=== PATIENT | male | born 1950 | race Caucasian/White ===

== ENCOUNTER → 2016-09-22 | Outpatient (CLI) | payer MEDICARE ==
[~2016-09-22] MED LIST: BAYER ASPIRIN PO; CANA1TAB4 PO; CARI350T PO; CLOP75TA PO; CLOP75TA22 PO; COQ10 PO; DIAZ10TA PO; DILT120T3 PO; FURO-93 PO; FURO20TA3 PO; GLIM4TAB2 PO; HYDR1TAB14 PO; INSU100I13 SC; INSU100I9 SQ-INSULIN; INSU100V8 SQ; MAGNESIUM PO; METF10002 PO; OXYC-302 PO; OXYC1TAB9 PO; PANT40TA3 PO; PIOG15TA2 PO; PIOG30TA8 PO; POTA10CA PO; POTA10TA5 PO; POTASSIUM GLUCONATE PO; PRAV80TA2 PO; PREG200C PO; PREG75CA PO; ROSU20TA PO; SUPER B COMPLEX PO; TEMA30CA PO; TIZA4TAB9 PO; VALS80TA3 PO; VITAMIN D3 PO
[2016-09-22 11:17] LABS: HEMOGLOBIN 14.2 g/dL (13.7-18.0)
[2016-09-22 11:26] LABS: ASPARTATE AMINO TRANSFERASE 21 U/L (15-37); BLOOD UREA NITROGEN 37 mg/dL (7-18)
== END | disposition home or self-care (01) ==
LOC: STAR 09:50
PROVIDERS: ATTEND Neurological Surgery
DX: Z01.810 Encounter for preprocedural cardiovascular examination (principal); M47.894 Other spondylosis, thoracic region; M48.06 Spinal stenosis, lumbar region; R79.1 Abnormal coagulation profile
CPT/HCPCS: 36415; 71020; 80053; 81003; 83036; 85025; 85610; 85730; 93005

== ENCOUNTER 2016-10-06 06:01 | Inpatient (IN) | payer MEDICARE, OTHER ==
[2016-09-22 10:21] VITALS: BP 124/75
[~2016-10-06] VITALS: Ht 190.5 cm; Wt 107.1 kg
[2016-10-06] MEDS ORDERED: LACTATED RINGERS 1,000 ML IV SCH (06:36)
[2016-10-06] MEDS ORDERED: LIDOCAINE 1%, 2ML SQ PRN (07:00)
[2016-10-06] MEDS ORDERED: BUPIVACAINE/PF-EPI 0.25% 1:200K ONE ×2 (07:05→10:06)
[2016-10-06] MEDS ORDERED: KETAMINE 10 MG/ML, 20ML ONE (07:05)
[2016-10-06] MEDS ORDERED: FENTANYL PF 250 MCG/5ML ONE (07:05)
[2016-10-06] MEDS ORDERED: HYDROmorphone 1 MG/ML, 1ML ONE ×2 (07:05→12:11)
[2016-10-06] MEDS ORDERED: MIDAZOLAM 1 MG/ML, 2ML ONE (07:05)
[2016-10-06] MEDS ORDERED: BACITRACIN 50,000 UNIT ONE (07:05)
[2016-10-06] MEDS ORDERED: VANCOMYCIN 1,000 MG ONE (07:05)
[2016-10-06] MEDS ORDERED: THROMBIN 5,000 UNIT VIAL TP ONE ×2 (07:05→07:15)
[2016-10-06] MEDS ORDERED: BUPIVACAINE/PF-EPI 0.25% 1:200K INFIL ONE ×3 (07:15→08:47)
[2016-10-06] MEDS ORDERED: BACITRACIN 50,000 UNIT IRRIG ONE (07:15)
[2016-10-06] MEDS ORDERED: EPHEDRINE 50 MG/ML, 1ML ONE (07:44)
[2016-10-06] MEDS ORDERED: PROPOFOL 10 MG/ML, 50ML ONE (07:44)
[2016-10-06] MEDS ORDERED: DEXAMETHASONE 4 MG/ML, 5ML ONE (07:44)
[2016-10-06] MEDS ORDERED: PROPOFOL 10 MG/ML, 20ML ONE (07:44)
[2016-10-06] MEDS ORDERED: CEFAZOLIN 1,000 MG ONE (07:44)
[2016-10-06] MEDS ORDERED: SUCCINYLCHOLINE 20 MG/ML, 10ML ONE (07:44)
[2016-10-06] MEDS ORDERED: PHENYLEPHRINE 10 MG/ML ONE (07:44)
[2016-10-06] MEDS ORDERED: MIDAZOLAM 1 MG/ML, 2ML IV PRN (08:30)
[2016-10-06] MEDS ORDERED: ONDANSETRON 2MG/ML, 2ML IVPush PRN (08:30)
[2016-10-06] MEDS ORDERED: MEPERIDINE/PF 25MG/0.5ML IVPush PRN (08:30)
[2016-10-06] MEDS ORDERED: hydrALAzine 20 MG/ML, 1ML IV PRN (08:30)
[2016-10-06] MEDS ORDERED: LABETALOL 5MG/ML, 20ML IV PRN (08:30)
[2016-10-06] MEDS ORDERED: OXYcodone 5 MG/5 ML ORAL.SOL UDC PO PRN (08:30)
[2016-10-06] MEDS ORDERED: PROMETHAZINE 25 MG/ML, 1ML IV PRN (08:30)
[2016-10-06] MEDS ORDERED: ACETAMINOPHEN 325 MG TABLET PO PRN (08:30)
[2016-10-06] MEDS ORDERED: FENTANYL PF 100 MCG/2ML IV PRN (08:30)
[2016-10-06] MEDS ORDERED: ALBUTEROL/IPRATROPIUM 2.5MG/0.5MG, 3 ML NPPB PRN (08:30)
[2016-10-06] MEDS ORDERED: OXYC1TAB9 PO (09:34)
[2016-10-06] MEDS ORDERED: VANCOMYCIN 1,000 MG IM ONE (10:14)
[2016-10-06] MEDS ORDERED: INSULIN SINGLE DOSE, ER SQ-INSULIN ONE (13:02)
[2016-10-06] MEDS ORDERED: HYDROmorphone PCA 30 MG/30 ML ONE (13:03)
[2016-10-06] MEDS ORDERED: HYDROmorphone 2 MG/ML, 1ML ONE (13:24)
[2016-10-06] MEDS: HYDROmorphone 1 MG/ML, 1ML IV PRN ×4 (13:26→14:20)
[2016-10-06] MEDS ORDERED: HYDROmorphone PCA 30 MG/30 ML IV PRN (13:30)
[2016-10-06] MEDS ORDERED: TIZANIDINE 4MG TABLET PO SCH (14:00)
[2016-10-06 15:15] VITALS: BP 90/45
[2016-10-06] MEDS ORDERED: BISACODYL 10 MG SUPP PR PRN (16:00)
[2016-10-06] MEDS ORDERED: HYDROcodone/APAP 5/325 TABLET PO PRN (16:00)
[2016-10-06] MEDS ORDERED: TIZANIDINE 4MG TABLET PO PRN (16:00)
[2016-10-06] MEDS ORDERED: OXYcodone/APAP 5/325MG TABLET PO PRN (16:00)
[2016-10-06] MEDS ORDERED: DIPHENHYDRAMINE 25 MG CAPSULE PO PRN (16:00)
[2016-10-06] MEDS ORDERED: DIPHENHYDRAMINE 50 MG/ML, 1ML IVPush PRN (16:00)
[2016-10-06] MEDS ORDERED: MAGNESIUM HYDROXIDE 8%, 30ML UDC PO PRN (16:00)
[2016-10-06] MEDS: CEFAZOLIN PMX 1GM/50ML 50 ML IVPB SCH (16:32)
[2016-10-06] MEDS: NS + 20MEQ KCL 1,000 ML IV SCH (16:32)
[2016-10-06] MEDS: INSULIN REGULAR 100 UNITS/ML, 3ML VIAL SQ-INSULIN SCH ×2 (18:23→21:32)
[2016-10-06] MEDS: PREGABALIN 200 MG CAPSULE PO SCH ×2 (18:24→21:34)
[2016-10-06] MEDS: INVOKAMET HOMEMEDPO SCH (18:57)
[2016-10-06 19:38] VITALS: BP 109/61
[2016-10-06] MEDS: ATORVASTATIN 20 MG TABLET PO SCH (21:32)
[2016-10-06] MEDS: TIZANIDINE 4MG TABLET PO PRN (21:32)
[2016-10-06] MEDS: DILTIAZEM 120 MG CAP.ER.12H PO SCH (21:32)
[2016-10-06] MEDS: INSULIN DETEMIR 100 UNITS/ML, PEN SQ-INSULIN SCH (21:50)
[2016-10-07] MEDS: CEFAZOLIN PMX 1GM/50ML 50 ML IVPB SCH (00:02)
[2016-10-07 00:44] VITALS: BP 96/56
[2016-10-07 03:08] VITALS: BP 91/57
[2016-10-07] MEDS: NS + 20MEQ KCL 1,000 ML IV SCH ×2 (05:32→19:59)
[2016-10-07 06:05] LABS: HEMOGLOBIN 10.1 g/dL (13.7-18.0)
[2016-10-07 06:48] LABS: BLOOD UREA NITROGEN 49 mg/dL (7-18)
[2016-10-07] MEDS: INVOKAMET HOMEMEDPO SCH ×2 (08:00→17:00)
[2016-10-07] MEDS: INSULIN REGULAR 100 UNITS/ML, 3ML VIAL SQ-INSULIN SCH ×4 (08:05→21:23)
[2016-10-07 08:19] VITALS: BP 113/64
[2016-10-07] MEDS: PREGABALIN 200 MG CAPSULE PO SCH ×3 (08:23→21:23)
[2016-10-07] MEDS: POTASSIUM CHLORIDE 10 MEQ TABLET.ER PO SCH (08:23)
[2016-10-07] MEDS: SENNA/DOCUSATE TABLET PO SCH (08:23)
[2016-10-07] MEDS: OXYcodone/APAP 10/325MG TABLET PO SCH ×5 (08:30→21:23)
[2016-10-07] MEDS: PIOGLITAZONE 15 MG TABLET PO SCH (08:34)
[2016-10-07] MEDS: DILTIAZEM 120 MG CAP.ER.12H PO SCH ×2 (09:00→21:00)
[2016-10-07] MEDS ORDERED: LEVOFLOXACIN 500 MG TABLET PO SCH (09:00)
[2016-10-07] MEDS: VALSARTAN 80 MG TABLET PO SCH (09:00)
[2016-10-07] MEDS: FUROSEMIDE 20 MG TABLET PO SCH (10:08)
[2016-10-07 16:12] VITALS: BP 103/61
[2016-10-07 20:07] VITALS: BP 90/51
[2016-10-07] MEDS: INSULIN DETEMIR 100 UNITS/ML, PEN SQ-INSULIN SCH (21:22)
[2016-10-07] MEDS: ATORVASTATIN 20 MG TABLET PO SCH (21:23)
[2016-10-08] MEDS: OXYcodone/APAP 10/325MG TABLET PO SCH ×7 (01:03→21:05)
[2016-10-08 02:14] VITALS: BP 97/55
[2016-10-08 05:32] LABS: HEMOGLOBIN 9.4 g/dL (13.7-18.0)
[2016-10-08 05:45] LABS: BLOOD UREA NITROGEN 44 mg/dL (7-18)
[2016-10-08] MEDS: INSULIN REGULAR 100 UNITS/ML, 3ML VIAL SQ-INSULIN SCH ×4 (07:00→21:00)
[2016-10-08] MEDS: INVOKAMET HOMEMEDPO SCH ×2 (08:00→16:37)
[2016-10-08] MEDS: SENNA/DOCUSATE TABLET PO SCH (08:59)
[2016-10-08] MEDS: PREGABALIN 200 MG CAPSULE PO SCH ×3 (08:59→21:04)
[2016-10-08] MEDS: POTASSIUM CHLORIDE 10 MEQ TABLET.ER PO SCH (08:59)
[2016-10-08] MEDS: LEVOFLOXACIN 750 MG TABLET PO SCH (09:00)
[2016-10-08] MEDS: PIOGLITAZONE 15 MG TABLET PO SCH (09:00)
[2016-10-08 09:15] VITALS: BP 108/61
[2016-10-08 10:21] VITALS: BP 113/66
[2016-10-08] MEDS: DILTIAZEM 120 MG CAP.ER.12H PO SCH ×2 (10:24→21:00)
[2016-10-08] MEDS: FUROSEMIDE 20 MG TABLET PO SCH (10:25)
[2016-10-08] MEDS: VALSARTAN 80 MG TABLET PO SCH (10:25)
[2016-10-08] MEDS: TIZANIDINE 4MG TABLET PO PRN (12:37)
[2016-10-08 15:40] VITALS: BP 100/59
[2016-10-08 20:43] VITALS: BP 96/55
[2016-10-08] MEDS: ATORVASTATIN 20 MG TABLET PO SCH (21:04)
[2016-10-08] MEDS: INSULIN DETEMIR 100 UNITS/ML, PEN SQ-INSULIN SCH (21:05)
[2016-10-09 02:30] VITALS: BP 95/60
[2016-10-09] MEDS: OXYcodone/APAP 10/325MG TABLET PO SCH ×6 (03:08→23:12)
[2016-10-09 07:49] VITALS: BP 100/57
[2016-10-09] MEDS: INVOKAMET HOMEMEDPO SCH ×3 (08:00→17:00)
[2016-10-09] MEDS: PREGABALIN 200 MG CAPSULE PO SCH ×3 (08:06→20:33)
[2016-10-09] MEDS: POTASSIUM CHLORIDE 10 MEQ TABLET.ER PO SCH (08:07)
[2016-10-09] MEDS: LEVOFLOXACIN 750 MG TABLET PO SCH (08:07)
[2016-10-09] MEDS: SENNA/DOCUSATE TABLET PO SCH (08:08)
[2016-10-09] MEDS: PIOGLITAZONE 15 MG TABLET PO SCH (08:08)
[2016-10-09] MEDS: DILTIAZEM 120 MG CAP.ER.12H PO SCH (08:08)
[2016-10-09] MEDS: VALSARTAN 80 MG TABLET PO SCH (08:08)
[2016-10-09] MEDS: INSULIN REGULAR 100 UNITS/ML, 3ML VIAL SQ-INSULIN SCH ×4 (08:09→20:34)
[2016-10-09] MEDS ORDERED: CYCL-259 PO (08:38)
[2016-10-09] MEDS ORDERED: LEVO750T26 PO (08:38)
[2016-10-09] MEDS ORDERED: OXYC1TAB9 PO (08:38)
[2016-10-09 10:31] VITALS: BP 106/67
[2016-10-09] MEDS: ONDANSETRON 2MG/ML, 2ML IV PRN (10:32)
[2016-10-09 11:31] LABS: IS PT STATUS REG ER OR PRE ER? NO
[2016-10-09] MEDS ORDERED: FUROSEMIDE 40 MG TABLET PO SCH (11:47)
[2016-10-09 14:45] VITALS: BP 120/74
[2016-10-09 15:43] LABS: HEMOGLOBIN 11.4 g/dL (13.7-18.0)
[2016-10-09 18:40] LABS: IS PT STATUS REG ER OR PRE ER? NO
[2016-10-09 18:41] VITALS: BP_SYST 106; BP_SYST 122; BP_SYST 87; BP_DIAS 46; BP_DIAS 64; BP_DIAS 70
[2016-10-09] MEDS ORDERED: SODIUM CHLORIDE 0.9% 300 ML IV SCH ×2 (19:00)
[2016-10-09] MEDS ORDERED: SODIUM CHLORIDE 0.9%, 500ML IVBOLUS ONE (19:00)
[2016-10-09 20:00] VITALS: BP 100/63
[2016-10-09] MEDS: ATORVASTATIN 20 MG TABLET PO SCH (20:33)
[2016-10-09] MEDS: INSULIN DETEMIR 100 UNITS/ML, PEN SQ-INSULIN SCH (20:34)
[2016-10-09 23:56] LABS: IS PT STATUS REG ER OR PRE ER? NO
[2016-10-10 02:00] VITALS: BP 103/60
[2016-10-10] MEDS: OXYcodone/APAP 10/325MG TABLET PO SCH ×6 (03:00→19:54)
[2016-10-10 06:00] LABS: IS PT STATUS REG ER OR PRE ER? NO
[2016-10-10] MEDS: INSULIN REGULAR 100 UNITS/ML, 3ML VIAL SQ-INSULIN SCH ×4 (07:00→20:54)
[2016-10-10 07:36] VITALS: BP 125/66
[2016-10-10] MEDS ORDERED: FUROSEMIDE 20 MG TABLET PO SCH (09:00)
[2016-10-10] MEDS: INVOKAMET HOMEMEDPO SCH ×2 (09:13→17:00)
[2016-10-10] MEDS: POTASSIUM CHLORIDE 10 MEQ TABLET.ER PO SCH (09:14)
[2016-10-10] MEDS: PIOGLITAZONE 15 MG TABLET PO SCH (09:14)
[2016-10-10] MEDS: SENNA/DOCUSATE TABLET PO SCH (09:15)
[2016-10-10] MEDS: PREGABALIN 200 MG CAPSULE PO SCH ×3 (09:15→20:54)
[2016-10-10] MEDS: LEVOFLOXACIN 750 MG TABLET PO SCH (09:15)
[2016-10-10 11:51] VITALS: BP_SYST 106; BP_SYST 84; BP_SYST 91; BP_DIAS 58; BP_DIAS 67
[2016-10-10 13:56] VITALS: BP 119/77
[2016-10-10] MEDS ORDERED: SODIUM CHLORIDE 0.9%, 250ML IVBOLUS ONE (15:00)
[2016-10-10] MEDS: ONDANSETRON 2MG/ML, 2ML IV PRN (15:26)
[2016-10-10] MEDS ORDERED: HEPARIN 25,000 UNITS/500ML PMX 500 ML IV PRN ×3 (17:00)
[2016-10-10] MEDS ORDERED: HEPARIN 5,000 UNITS/ML, 1ML IV PRN ×2 (17:00→17:47)
[2016-10-10] MEDS ORDERED: OMNIPAQUE 350 MG/ML, 100ML BOTTLE ONE (17:55)
[2016-10-10] MEDS ORDERED: FUROSEMIDE 40 MG/4 ML IV PRN (18:00)
[2016-10-10] MEDS ORDERED: SODIUM CHLORIDE 0.9% 1,000 ML IV SCH (18:00)
[2016-10-10 19:43] VITALS: BP 100/60
[2016-10-10] MEDS: ATORVASTATIN 20 MG TABLET PO SCH (20:53)
[2016-10-10] MEDS: INSULIN DETEMIR 100 UNITS/ML, PEN SQ-INSULIN SCH (20:55)
[2016-10-11] MEDS: OXYcodone/APAP 10/325MG TABLET PO SCH ×4 (00:02→12:07)
[2016-10-11 02:00] VITALS: BP_SYST 112; BP_SYST 93; BP_SYST 95; BP_DIAS 58; BP_DIAS 61; BP_DIAS 65
[2016-10-11] MEDS: INSULIN REGULAR 100 UNITS/ML, 3ML VIAL SQ-INSULIN SCH ×2 (07:00→11:00)
[2016-10-11 07:24] VITALS: BP 103/65
[2016-10-11 07:26] VITALS: BP 97/63
[2016-10-11 07:32] VITALS: BP 106/70
[2016-10-11] MEDS: INVOKAMET HOMEMEDPO SCH (08:00)
[2016-10-11] MEDS: PIOGLITAZONE 15 MG TABLET PO SCH (09:00)
[2016-10-11 09:02] LABS: BLOOD UREA NITROGEN 39 mg/dL (7-18)
[2016-10-11] MEDS: POTASSIUM CHLORIDE 10 MEQ TABLET.ER PO SCH (09:34)
[2016-10-11] MEDS: PREGABALIN 200 MG CAPSULE PO SCH (09:34)
[2016-10-11] MEDS: SENNA/DOCUSATE TABLET PO SCH (09:35)
[2016-10-11] MEDS: LEVOFLOXACIN 750 MG TABLET PO SCH (09:35)
== END 2016-10-11 12:16 | disposition home or self-care (01) | DRG 460 ==
LOC: ORIP 06:01 → 4NOR 15:22 → 5SO 10-09 15:01
PROVIDERS: ADMIT Neurological Surgery; ATTEND Neurological Surgery
PROC: 0SG30AJ Fusion of Lumbosacral Joint with Interbody Fusion Device, Posterior Approach, Anterior Column, Open Approach (ICD-10-PCS; 2016-10-06)
PROC: 0SG30K1 Fusion of Lumbosacral Joint with Nonautologous Tissue Substitute, Posterior Approach, Posterior Column, Open Approach (ICD-10-PCS; 2016-10-06)
PROC: 0SG00K1 Fusion of Lumbar Vertebral Joint with Nonautologous Tissue Substitute, Posterior Approach, Posterior Column, Open Approach (ICD-10-PCS; 2016-10-06)
PROC: 5A09457 Assistance with Respiratory Ventilation, 24-96 Consecutive Hours, Continuous Positive Airway Pressure (ICD-10-PCS; 2016-10-06)
PROC: 0SG00AJ Fusion of Lumbar Vertebral Joint with Interbody Fusion Device, Posterior Approach, Anterior Column, Open Approach (ICD-10-PCS; principal; 2016-10-06 07:30)
DX: M48.06 Spinal stenosis, lumbar region (principal); I13.0 Hypertensive heart and chronic kidney disease with heart failure and stage 1 through stage 4 chronic kidney disease, or unspecified chronic kidney disease; I50.42 Chronic combined systolic (congestive) and diastolic (congestive) heart failure; M51.37 Other intervertebral disc degeneration, lumbosacral region; M43.10 Spondylolisthesis, site unspecified; M40.209 Unspecified kyphosis, site unspecified; M54.5 Low back pain; I25.10 Atherosclerotic heart disease of native coronary artery without angina pectoris; N18.3 Chronic kidney disease, stage 3 (moderate); E11.22 Type 2 diabetes mellitus with diabetic chronic kidney disease; E78.5 Hyperlipidemia, unspecified; I95.1 Orthostatic hypotension; I25.5 Ischemic cardiomyopathy; K21.9 Gastro-esophageal reflux disease without esophagitis; Z95.5 Presence of coronary angioplasty implant and graft; I25.2 Old myocardial infarction; Z82.49 Family history of ischemic heart disease and other diseases of the circulatory system
CPT/HCPCS: 36415; 71020; 71275; 72100; 78582; 80048; 82962; 83036; 83880; 84484; 85025; 85379; 85610; 85730; 87040; 93005; 93306; 95938; 95941; C1713; C1776; J0690; J1100; J1170; J1815; J2250; J2405; J2704; J3010; J3370; J3480; J3490; Q9967; A9540; A9558; C1762; C9898; J0330; J2370; J7030; J7040; J7050; J7120

== ENCOUNTER → 2017-03-10 | Outpatient (CLI) | payer MEDICARE ==
[~2017-03-10] MED LIST changes: -CLOP75TA22 PO; +CLOP75TA52 PO; +CYCL-259 PO; +LEVO750T26 PO; +PIOG30TA23 PO; -PIOG30TA8 PO
== END | disposition home or self-care (01) ==
LOC: RAD 09:24
PROVIDERS: ATTEND Registered Nurse Registered Nurse First Assistant
DX: S32.009A Unspecified fracture of unspecified lumbar vertebra, initial encounter for closed fracture (principal)

== ENCOUNTER 2017-03-16 08:41 | Day surgery (SDC) | payer MEDICARE, OTHER ==
[~2017-03-16] VITALS: Ht 190.5 cm; Wt 106.8 kg
[2017-03-16 09:28] VITALS: BP 122/73
[2017-03-16] MEDS ORDERED: SODIUM CHLORIDE 0.9% 1,000 ML IV SCH (09:32)
[2017-03-16] MEDS ORDERED: LIDOCAINE 2%, 20ML ONE (09:32)
[2017-03-16] MEDS ORDERED: FENTANYL PF 100 MCG/2ML ONE (10:30)
[2017-03-16] MEDS ORDERED: FLUMAZENIL 0.1 MG/1 ML, 5ML ONE (10:30)
[2017-03-16] MEDS ORDERED: MIDAZOLAM 1 MG/ML, 5ML ONE (10:30)
[2017-03-16] MEDS ORDERED: NALOXONE 1 MG/ML, 2ML ONE (10:30)
[2017-03-16] MEDS ORDERED: DIPHENHYDRAMINE 50 MG/ML, 1ML ONE (10:45)
[2017-03-16] MEDS ORDERED: MEPERIDINE/PF 50 MG/ML ONE (10:46)
[2017-03-16] MEDS ORDERED: LIDOCAINE 1%, 20ML ONE (11:01)
[2017-03-16] MEDS ORDERED: HYDROcodone/APAP 10/325 MG TABLET ONE (13:58)
[2017-03-16] MEDS ORDERED: HYDROcodone/APAP 10/325 MG TABLET PO PRN (14:00)
== END 2017-03-16 15:25 ==
LOC: OUT 08:41
PROVIDERS: ATTEND Registered Nurse Registered Nurse First Assistant
DX: M84.48XK Pathological fracture, other site, subsequent encounter for fracture with nonunion (principal); I10 Essential (primary) hypertension; E11.9 Type 2 diabetes mellitus without complications; I25.2 Old myocardial infarction; Z98.890 Other specified postprocedural states; Z79.82 Long term (current) use of aspirin
CPT/HCPCS: 0200T; 22511; 99156; 99157; J1200; J2175; J2250; J3010; J3490; J7030; J2310

== ENCOUNTER → 2017-05-31 | Outpatient (CLI) | payer MEDICARE, OTHER | END | disposition home or self-care (01) | LOC: CFH 15:23 | PROVIDERS: ATTEND Otolaryngology | DX: E04.2 Nontoxic multinodular goiter (principal) | CPT/HCPCS: 76536 ==

== ENCOUNTER → 2017-07-01 | Outpatient (CLI) | payer MEDICARE, OTHER ==
[~2017-07-01] MED LIST changes: +ASPI325T17 PO; +CARV3.1212 PO; +DILT120C11 PO; +DILT120C80 PO; +FERR324T8 PO; +FURO40TA6 PO; +GABA-826 PO; +INSU100I13 SQ; +METH750T2 PO; +PIOG15TA22 PO; +POLY17PO5 PO; +POTA20TA6 PO; +VALS40TA9 PO
== END | disposition home or self-care (01) ==
LOC: RAD 09:41
PROVIDERS: ATTEND Nurse Practitioner Family
DX: I27.20 Pulmonary hypertension, unspecified (principal); R06.02 Shortness of breath; R07.89 Other chest pain
CPT/HCPCS: 71010; 78582; A9540; A9558

== ENCOUNTER 2017-07-23 06:48 | Day surgery (SDC) | payer MEDICARE, OTHER ==
[2017-07-21 15:32] VITALS: BP 117/75
[2017-07-21 15:39] LABS: INTERNATIONAL NORMALIZED RATIO 1.09 (0.93-1.1); PROTHROMBIN TIME 11.3 Seconds (9.6-11.5)
[2017-07-21 15:42] LABS: ALBUMIN 3.9 g/dL (3.4-5.0); ANION GAP 9 mmol/L (5-15); CALCIUM 9.3 mg/dL (8.5-10.1); CHLORIDE 107 mmol/L (98-107)
[2017-07-21 15:45] LABS: ALANINE AMINOTRANSFERASE 36 U/L (12-78); ALKALINE PHOSPHATASE 174 U/L (45-117); BILIRUBIN,TOTAL 0.9 mg/dL (0.2-1.0); CREATININE 2.04 mg/dL (0.7-1.3); TOTAL PROTEIN 8.2 g/dL (6.4-8.2)
[2017-07-21 15:53] LABS: HEMOGRAM NOTE RECHECKED; MEAN CORPUSCULAR HEMOGLOBIN 25.8 pg (27.5-34.5); MEAN CORPUSCULAR HGB CONC 32.1 g/dL (33.2-36.2); MEAN CORPUSCULAR VOLUME 80.3 fL (81-97); MEAN PLATELET VOLUME 9.8 fL (7.4-10.4); PLATELET COUNT 175 x10^3/uL (130-400); RED BLOOD COUNT 5.22 x10^6/uL (4.38-5.82); RED CELL DISTRIBUTION WIDTH 28.2 % (9.4-14.8)
[2017-07-21 16:13] LABS: MD YES
[2017-07-21 16:16] LABS: BAND#(MANUAL) 0.09 x10^3/uL; BANDS%(MANUAL) 2 % (0-7); BASOS#(MANUAL) 0.18 x10^3/uL (0-0.1); BASOS% (MANUAL) 4 % (0-1); EOS#(MANUAL) 0.37 x10^3/uL (0.0-0.4); EOS% (MANUAL) 8 % (1-7); LYMPH#(MANUAL) 1.43 x10^3/uL (1-3.4); LYMPHS% (MANUAL) 31 % (22-44); MONOS#(MANUAL) 0.83 x10^3/uL (0.3-2.7); MONOS% (MANUAL) 18 % (2-9); REACTIVE LYMPHS # (MANUAL) 0.05 x10^3/uL (0-0); REACTIVE LYMPHS % (MANUAL) 1 % (0-0); SEG#(MANUAL) 1.66 x10^3/uL (1.8-6.8); SEGS% (MANUAL) 36 % (42-75)
[2017-07-21 16:18] LABS: ANISOCYTOSIS 2+; MICROCYTOSIS 1+
[2017-07-21 16:19] LABS: <PLATELET ESTIMATE> ADEQUATE; HYPOCHROMIA 1+; OVALOCYTES 1+; POLYCHROMASIA 1+; SCHISTOCYTES 1+
[2017-07-21 16:20] LABS: LARGE PLATELETS 1+
[~2017-07-23] VITALS: Ht 190.5 cm; Wt 104.5 kg
[~2017-07-23 06:48] MED LIST changes: +CARV3.122 PO; +FERR325T16 PO; +POLY17PO3 PO; +POTA20TA89 PO; +VALS40TA2 PO
[2017-07-23] MEDS ORDERED: SODIUM BICARB 8.4%,50ML SYR. 150 MEQ in DEXTROSE 5% 1,000 ML IV SCH (07:20)
[2017-07-23] MEDS ORDERED: SODIUM CHLORIDE 0.9% 1,000 ML IV SCH (10:36)
== END 2017-07-23 16:42 | disposition home or self-care (01) ==
LOC: CACL 06:48
PROVIDERS: ATTEND Internal Medicine Cardiovascular Disease
DX: I25.110 Atherosclerotic heart disease of native coronary artery with unstable angina pectoris (principal); I13.0 Hypertensive heart and chronic kidney disease with heart failure and stage 1 through stage 4 chronic kidney disease, or unspecified chronic kidney disease; E11.22 Type 2 diabetes mellitus with diabetic chronic kidney disease; N18.3 Chronic kidney disease, stage 3 (moderate); I50.41 Acute combined systolic (congestive) and diastolic (congestive) heart failure; E78.4 Other hyperlipidemia; Z98.890 Other specified postprocedural states; Z79.82 Long term (current) use of aspirin; Z79.899 Other long term (current) drug therapy; Z79.4 Long term (current) use of insulin; Z87.11 Personal history of peptic ulcer disease; E11.39 Type 2 diabetes mellitus with other diabetic ophthalmic complication; H40.9 Unspecified glaucoma; E11.40 Type 2 diabetes mellitus with diabetic neuropathy, unspecified; E11.65 Type 2 diabetes mellitus with hyperglycemia; E04.1 Nontoxic single thyroid nodule; Z98.61 Coronary angioplasty status; Z88.5 Allergy status to narcotic agent
CPT/HCPCS: 36415; 71046; 80053; 82962; 85025; 85610; 85730; 93005; 93458; 99156; 99157; C1725; C1769; C1874; C1887; C1894; C9600; J0583; J1644; J2250; J3010; J3490; J7070; Q9967

== ENCOUNTER 2017-12-17 11:27 | Emergency (ER) | payer MEDICARE, OTHER ==
[~2017-12-17] VITALS: Ht 190.5 cm; Wt 102.8 kg
[~2017-12-17 11:27] MED LIST changes: +ISOS30TA8 PO; -PIOG15TA2 PO; +PIOG15TA3 PO
[2017-12-17 11:29] VITALS: BP 114/64
== END 2017-12-17 12:47 | disposition left against medical advice (07) ==
LOC: ED 12:41
DX: S80.11XA Contusion of right lower leg, initial encounter (principal); I11.0 Hypertensive heart disease with heart failure; I50.9 Heart failure, unspecified; E11.9 Type 2 diabetes mellitus without complications; I25.10 Atherosclerotic heart disease of native coronary artery without angina pectoris; X58.XXXA Exposure to other specified factors, initial encounter; Y93.89 Activity, other specified; Y92.89 Other specified places as the place of occurrence of the external cause; Y99.8 Other external cause status
CPT/HCPCS: 99281

== ENCOUNTER 2017-12-27 12:16 | Inpatient (IN) | payer MEDICARE, OTHER ==
[~2017-12-27] VITALS: Ht 190.5 cm; Wt 91.8 kg
[~2017-12-27 12:16] MED LIST changes: +OXYC-432 PO; -OXYC1TAB9 PO; -PIOG15TA3 PO; +PIOG15TA66 PO
[2017-12-27 12:50] LABS: BASOPHILS # (AUTO) 0.01 x10^3/uL (0-0.1); BASOPHILS % (AUTO) 0 % (0-1); EOSINOPHILS # (AUTO) 0.18 x10^3/uL (0-0.4); EOSINOPHILS % (AUTO) 3 % (1-7); LYMPHOCYTES # (AUTO) 0.67 x10^3/uL (1-3.4); LYMPHOCYTES % (AUTO) 11 % (22-44); MD NO; MEAN CORPUSCULAR HEMOGLOBIN 29.7 pg (27.5-34.5); MEAN CORPUSCULAR HGB CONC 32.9 g/dL (33.2-36.2); MEAN CORPUSCULAR VOLUME 90.2 fL (81-97); MEAN PLATELET VOLUME 10.1 fL (7.4-10.4); MONOCYTES # (AUTO) 0.89 x10^3/uL (0.2-0.8); MONOCYTES % (AUTO) 15 % (2-9); NEUTROPHILS # (AUTO) 4.31 x10^3/uL (1.8-6.8); NEUTROPHILS % (AUTO) 71 % (42-75); PLATELET COUNT 140 x10^3/uL (130-400); RED BLOOD COUNT 4.34 x10^6/uL (4.38-5.82); RED CELL DISTRIBUTION WIDTH 17.2 % (9.4-14.8)
[2017-12-27 13:02] LABS: ALANINE AMINOTRANSFERASE 46 U/L (12-78); ALBUMIN 3.2 g/dL (3.4-5.0); ANION GAP 9 mmol/L (5-15); CALCIUM 8.7 mg/dL (8.5-10.1); CHLORIDE 114 mmol/L (98-107); CREATININE 1.89 mg/dL (0.7-1.3)
[2017-12-27 13:06] LABS: ALKALINE PHOSPHATASE 284 U/L (45-117); BILIRUBIN,TOTAL 1.8 mg/dL (0.2-1.0); TOTAL PROTEIN 7.2 g/dL (6.4-8.2); TROPONIN I 0.043 ng/mL (0.000-0.045)
[2017-12-27] MEDS ORDERED: SERT50TA5 PO (13:32)
[2017-12-27] MEDS ORDERED: FUROSEMIDE 40 MG/4 ML ONE (13:50)
[2017-12-27] MEDS ORDERED: SODIUM CHLORIDE FLUSH 10ML SYR IVF ONE (14:00)
[2017-12-27] MEDS ORDERED: FUROSEMIDE 40 MG/4 ML IV ONE (14:00)
[2017-12-27] MEDS ORDERED: HYDR-3307 PO (14:09)
[2017-12-27] MEDS ORDERED: INSU100I32 SQ-INSULIN (14:10)
[2017-12-27] MEDS ORDERED: INSU100C SQ-INSULIN (14:11)
[2017-12-27] MEDS ORDERED: ACETAMINOPHEN 325 MG TABLET PO PRN (14:30)
[2017-12-27] MEDS ORDERED: hydrALAzine 20 MG/ML, 1ML IVPush PRN (14:30)
[2017-12-27] MEDS ORDERED: DOCUSATE 100 MG CAPSULE PO PRN (14:30)
[2017-12-27] MEDS ORDERED: POLYETHYLENE GLYCOL 17 GM PACKET PO PRN (14:30)
[2017-12-27] MEDS ORDERED: ONDANSETRON 2MG/ML, 2ML IVPush PRN (14:30)
[2017-12-27] MEDS ORDERED: BISACODYL 10 MG SUPP PR PRN (14:30)
[2017-12-27 14:50] VITALS: BP 119/74
[2017-12-27] MEDS: HEPARIN 5,000 UNITS/ML, 1ML SQ SCH ×2 (15:32→22:34)
[2017-12-27] MEDS: GABAPENTIN 100 MG CAPSULE PO SCH ×2 (15:32→21:52)
[2017-12-27] MEDS: PREGABALIN 200 MG CAPSULE PO SCH ×2 (15:33→21:52)
[2017-12-27] MEDS: HYDROcodone/APAP 10/325 MG TABLET PO PRN (16:16)
[2017-12-27] MEDS: INSULIN LISPRO 100 UNITS/ML, PEN SQ-INSULIN SCH ×2 (16:21→21:00)
[2017-12-27 18:13] LABS: TROPONIN I 0.038 ng/mL (0.000-0.045)
[2017-12-27 19:12] VITALS: BP 119/85
[2017-12-27] MEDS ORDERED: INSULIN DEGLUDEC 48 UNIT SQ-INSULIN SCH (21:00)
[2017-12-27] MEDS ORDERED: ISOSORBIDE MONONITRATE ER 30 MG TABLET PO SCH (21:00)
[2017-12-27] MEDS ORDERED: CARVEDILOL 3.125 MG TABLET PO SCH (21:00)
[2017-12-27] MEDS: SODIUM CHLORIDE FLUSH 10ML SYR IVF SCH (21:46)
[2017-12-27] MEDS: CARVEDILOL 3.125 MG TABLET PO SCH (21:48)
[2017-12-27] MEDS: TEMAZEPAM 30 MG CAPSULE PO SCH (21:50)
[2017-12-27] MEDS: METHOCARBAMOL 750 MG TABLET PO SCH (21:50)
[2017-12-27] MEDS: SERTRALINE 50MG TABLET PO SCH (21:52)
[2017-12-28] VITALS (7 sets, daily range): BP systolic 95–146; BP diastolic 62–89
[2017-12-28 01:21] LABS: TROPONIN I 0.042 ng/mL (0.000-0.045)
[2017-12-28] MEDS: HYDROcodone/APAP 10/325 MG TABLET PO PRN ×4 (01:21→23:29)
[2017-12-28 05:19] LABS: BASOPHILS # (AUTO) 0.05 x10^3/uL (0-0.1); BASOPHILS % (AUTO) 1 % (0-1); EOSINOPHILS # (AUTO) 0.25 x10^3/uL (0-0.4); EOSINOPHILS % (AUTO) 4 % (1-7); LYMPHOCYTES # (AUTO) 0.79 x10^3/uL (1-3.4); LYMPHOCYTES % (AUTO) 13 % (22-44); MD NO; MEAN CORPUSCULAR HEMOGLOBIN 29.2 pg (27.5-34.5); MEAN CORPUSCULAR HGB CONC 32.6 g/dL (33.2-36.2); MEAN CORPUSCULAR VOLUME 89.8 fL (81-97); MEAN PLATELET VOLUME 9.9 fL (7.4-10.4); MONOCYTES # (AUTO) 0.76 x10^3/uL (0.2-0.8); MONOCYTES % (AUTO) 12 % (2-9); NEUTROPHILS # (AUTO) 4.39 x10^3/uL (1.8-6.8); NEUTROPHILS % (AUTO) 70 % (42-75); PLATELET COUNT 131 x10^3/uL (130-400); RED BLOOD COUNT 4.21 x10^6/uL (4.38-5.82); RED CELL DISTRIBUTION WIDTH 16.8 % (9.4-14.8)
[2017-12-28 05:33] LABS: CHLORIDE 111 mmol/L (98-107)
[2017-12-28 05:49] LABS: ALANINE AMINOTRANSFERASE 41 U/L (12-78); ALBUMIN 3.1 g/dL (3.4-5.0); ALKALINE PHOSPHATASE 266 U/L (45-117); ANION GAP 8 mmol/L (5-15); BILIRUBIN,TOTAL 2.3 mg/dL (0.2-1.0); CALCIUM 8.5 mg/dL (8.5-10.1); CREATININE 1.64 mg/dL (0.7-1.3); TOTAL PROTEIN 6.8 g/dL (6.4-8.2)
[2017-12-28] MEDS: HEPARIN 5,000 UNITS/ML, 1ML SQ SCH ×3 (06:02→23:28)
[2017-12-28] MEDS: POLYETHYLENE GLYCOL 17 GM PACKET PO PRN (06:02)
[2017-12-28] MEDS: INSULIN LISPRO 100 UNITS/ML, PEN SQ-INSULIN SCH ×4 (08:21→21:00)
[2017-12-28] MEDS ORDERED: DILTIAZEM 120 MG CAP.ER.24H PO SCH (09:00)
[2017-12-28] MEDS ORDERED: INSULIN DEGLUDEC 48 UNIT SQ-INSULIN SCH (09:00)
[2017-12-28] MEDS: CLOPIDOGREL 75 MG TABLET PO SCH (09:31)
[2017-12-28] MEDS: VALSARTAN 80 MG TABLET PO SCH (09:32)
[2017-12-28] MEDS: ASPIRIN 325 MG TABLET PO SCH (09:32)
[2017-12-28] MEDS: GABAPENTIN 100 MG CAPSULE PO SCH ×3 (09:32→21:08)
[2017-12-28] MEDS: PREGABALIN 200 MG CAPSULE PO SCH ×3 (09:32→21:09)
[2017-12-28] MEDS: DILTIAZEM 120 MG CAP.ER.24H PO SCH (09:32)
[2017-12-28] MEDS: ISOSORBIDE MONONITRATE ER 30 MG TABLET PO SCH (09:33)
[2017-12-28] MEDS: FUROSEMIDE 40 MG/4 ML IV SCH (09:33)
[2017-12-28] MEDS: SODIUM CHLORIDE FLUSH 10ML SYR IVF SCH ×2 (09:33→21:03)
[2017-12-28] MEDS: CARVEDILOL 3.125 MG TABLET PO SCH ×2 (09:33→21:05)
[2017-12-28] MEDS: INSULIN DEGLUDEC 48 UNIT HOMEINJ SCH (21:00)
[2017-12-28] MEDS: METHOCARBAMOL 750 MG TABLET PO SCH (21:08)
[2017-12-28] MEDS: TEMAZEPAM 30 MG CAPSULE PO SCH (21:08)
[2017-12-28] MEDS: SERTRALINE 50MG TABLET PO SCH (21:09)
[2017-12-29 01:19] VITALS: BP 119/74
[2017-12-29 04:49] LABS: CHLORIDE 108 mmol/L (98-107)
[2017-12-29 05:00] LABS: ALANINE AMINOTRANSFERASE 38 U/L (12-78); ALBUMIN 3.2 g/dL (3.4-5.0); ALKALINE PHOSPHATASE 271 U/L (45-117); ANION GAP 7 mmol/L (5-15); BILIRUBIN,TOTAL 1.9 mg/dL (0.2-1.0); CALCIUM 8.7 mg/dL (8.5-10.1); CREATININE 1.55 mg/dL (0.7-1.3)
[2017-12-29] MEDS: POLYETHYLENE GLYCOL 17 GM PACKET PO PRN (05:49)
[2017-12-29 06:40] VITALS: BP 109/70
[2017-12-29] MEDS: CLOPIDOGREL 75 MG TABLET PO SCH (08:02)
[2017-12-29] MEDS: ISOSORBIDE MONONITRATE ER 30 MG TABLET PO SCH (08:02)
[2017-12-29] MEDS: CARVEDILOL 3.125 MG TABLET PO SCH ×2 (08:02→20:41)
[2017-12-29] MEDS: PREGABALIN 200 MG CAPSULE PO SCH ×3 (08:02→20:36)
[2017-12-29] MEDS: GABAPENTIN 100 MG CAPSULE PO SCH ×3 (08:02→20:36)
[2017-12-29] MEDS: ASPIRIN 325 MG TABLET PO SCH (08:03)
[2017-12-29] MEDS: DILTIAZEM 120 MG CAP.ER.24H PO SCH (08:03)
[2017-12-29] MEDS: VALSARTAN 80 MG TABLET PO SCH (08:07)
[2017-12-29] MEDS: FUROSEMIDE 40 MG/4 ML IV SCH (08:08)
[2017-12-29] MEDS: HEPARIN 5,000 UNITS/ML, 1ML SQ SCH ×3 (08:08→23:16)
[2017-12-29] MEDS: INSULIN LISPRO 100 UNITS/ML, PEN SQ-INSULIN SCH ×4 (08:10→20:42)
[2017-12-29] MEDS: SODIUM CHLORIDE FLUSH 10ML SYR IVF SCH ×2 (08:14→20:44)
[2017-12-29] MEDS: HYDROcodone/APAP 10/325 MG TABLET PO PRN ×2 (08:33→20:36)
[2017-12-29] MEDS: INSULIN DEGLUDEC 48 UNIT HOMEINJ SCH ×2 (09:00→20:43)
[2017-12-29] MEDS: DOXYCYCLINE 100MG TABLET PO SCH ×2 (10:42→20:36)
[2017-12-29] MEDS: CEFTRIAXONE PMX 2GM/50ML 50 ML IV SCH (10:43)
[2017-12-29 15:00] VITALS: BP 117/74
[2017-12-29] MEDS: METHOCARBAMOL 750 MG TABLET PO SCH (20:36)
[2017-12-29 20:39] VITALS: BP 145/77
[2017-12-29] MEDS: SERTRALINE 50MG TABLET PO SCH (20:41)
[2017-12-29] MEDS: TEMAZEPAM 30 MG CAPSULE PO SCH (21:00)
[2017-12-29] MEDS ORDERED: TEMAZEPAM 15 MG CAPSULE ONE (21:12)
[2017-12-30 01:34] VITALS: BP 113/69
[2017-12-30 05:00] LABS: ANION GAP 5 mmol/L (5-15); CALCIUM 8.4 mg/dL (8.5-10.1); CHLORIDE 110 mmol/L (98-107); CREATININE 1.67 mg/dL (0.7-1.3)
[2017-12-30] MEDS: INSULIN LISPRO 100 UNITS/ML, PEN SQ-INSULIN SCH ×4 (07:48→21:12)
[2017-12-30 07:59] VITALS: BP 130/86
[2017-12-30] MEDS: ASPIRIN 325 MG TABLET PO SCH (08:00)
[2017-12-30] MEDS: HYDROcodone/APAP 10/325 MG TABLET PO PRN ×3 (08:00→23:28)
[2017-12-30] MEDS: DOXYCYCLINE 100MG TABLET PO SCH ×2 (08:00→21:11)
[2017-12-30] MEDS: CLOPIDOGREL 75 MG TABLET PO SCH (08:00)
[2017-12-30] MEDS: HEPARIN 5,000 UNITS/ML, 1ML SQ SCH ×3 (08:00→23:28)
[2017-12-30] MEDS: GABAPENTIN 100 MG CAPSULE PO SCH ×3 (08:01→21:14)
[2017-12-30] MEDS: DILTIAZEM 120 MG CAP.ER.24H PO SCH (08:01)
[2017-12-30] MEDS: VALSARTAN 80 MG TABLET PO SCH (08:01)
[2017-12-30] MEDS: ISOSORBIDE MONONITRATE ER 30 MG TABLET PO SCH (08:01)
[2017-12-30] MEDS: SODIUM CHLORIDE FLUSH 10ML SYR IVF SCH ×2 (08:01→21:00)
[2017-12-30] MEDS: PREGABALIN 200 MG CAPSULE PO SCH ×3 (08:07→21:14)
[2017-12-30] MEDS ORDERED: REGADENOSON 0.4 MG/5 ML SYRINGE ONE (08:44)
[2017-12-30 09:56] VITALS: BP 110/67
[2017-12-30] MEDS: CEFTRIAXONE PMX 2GM/50ML 50 ML IV SCH (09:57)
[2017-12-30] MEDS: CARVEDILOL 3.125 MG TABLET PO SCH ×2 (09:58→21:14)
[2017-12-30] MEDS: FUROSEMIDE 40 MG/4 ML IV SCH (09:58)
[2017-12-30 14:18] VITALS: BP 123/79
[2017-12-30 19:20] VITALS: BP 132/87
[2017-12-30] MEDS: INSULIN DEGLUDEC 48 UNIT HOMEINJ SCH (21:00)
[2017-12-30 21:09] VITALS: BP 140/81
[2017-12-30] MEDS: METHOCARBAMOL 750 MG TABLET PO SCH (21:11)
[2017-12-30] MEDS: SERTRALINE 50MG TABLET PO SCH (21:12)
[2017-12-30] MEDS: TEMAZEPAM 30 MG CAPSULE PO SCH (21:14)
[2017-12-31 03:30] VITALS: BP 111/76
[2017-12-31] MEDS: HYDROcodone/APAP 10/325 MG TABLET PO PRN ×2 (06:27→13:42)
[2017-12-31] MEDS: HEPARIN 5,000 UNITS/ML, 1ML SQ SCH ×2 (06:27→15:30)
[2017-12-31] MEDS: INSULIN LISPRO 100 UNITS/ML, PEN SQ-INSULIN SCH ×4 (07:00→20:39)
[2017-12-31 07:59] VITALS: BP 119/77
[2017-12-31] MEDS: SODIUM CHLORIDE FLUSH 10ML SYR IVF SCH ×2 (09:00→20:31)
[2017-12-31] MEDS: ASPIRIN 325 MG TABLET PO SCH (09:00)
[2017-12-31] MEDS: VALSARTAN 80 MG TABLET PO SCH (09:11)
[2017-12-31] MEDS: DILTIAZEM 120 MG CAP.ER.24H PO SCH (09:11)
[2017-12-31] MEDS: DOXYCYCLINE 100MG TABLET PO SCH ×2 (09:11→20:31)
[2017-12-31] MEDS: PREGABALIN 200 MG CAPSULE PO SCH ×3 (09:11→20:30)
[2017-12-31] MEDS: FUROSEMIDE 40 MG/4 ML IV SCH (09:11)
[2017-12-31] MEDS: CARVEDILOL 3.125 MG TABLET PO SCH ×2 (09:12→20:29)
[2017-12-31] MEDS: CLOPIDOGREL 75 MG TABLET PO SCH (09:12)
[2017-12-31] MEDS: ISOSORBIDE MONONITRATE ER 30 MG TABLET PO SCH (09:12)
[2017-12-31] MEDS: GABAPENTIN 100 MG CAPSULE PO SCH ×3 (09:12→20:29)
[2017-12-31] MEDS: CEFTRIAXONE PMX 2GM/50ML 50 ML IV SCH (10:24)
[2017-12-31 14:30] VITALS: BP 123/80
[2017-12-31] MEDS ORDERED: GADOBUTROL 10 MMOL/10 ML VIAL ONE (14:42)
[2017-12-31 19:05] VITALS: BP 117/73
[2017-12-31] MEDS ORDERED: SERTRALINE 100MG TABLET ONE (20:17)
[2017-12-31] MEDS: TEMAZEPAM 30 MG CAPSULE PO SCH (20:29)
[2017-12-31] MEDS: SERTRALINE 50MG TABLET PO SCH (20:30)
[2017-12-31] MEDS: METHOCARBAMOL 750 MG TABLET PO SCH (20:30)
[2017-12-31] MEDS: INSULIN DEGLUDEC 48 UNIT HOMEINJ SCH (20:39)
[2018-01-01] MEDS: HEPARIN 5,000 UNITS/ML, 1ML SQ SCH ×2 (00:22→07:30)
[2018-01-01 04:27] VITALS: BP 133/87
[2018-01-01] MEDS: HYDROcodone/APAP 10/325 MG TABLET PO PRN ×2 (04:58→11:13)
[2018-01-01] MEDS: INSULIN LISPRO 100 UNITS/ML, PEN SQ-INSULIN SCH (07:00)
[2018-01-01 07:20] VITALS: BP 113/69
[2018-01-01] MEDS: VALSARTAN 80 MG TABLET PO SCH (08:25)
[2018-01-01] MEDS: DOXYCYCLINE 100MG TABLET PO SCH (08:25)
[2018-01-01] MEDS: DILTIAZEM 120 MG CAP.ER.24H PO SCH (08:25)
[2018-01-01] MEDS: ASPIRIN 325 MG TABLET PO SCH (08:25)
[2018-01-01] MEDS: GABAPENTIN 100 MG CAPSULE PO SCH (08:25)
[2018-01-01] MEDS: FUROSEMIDE 40 MG/4 ML IV SCH (08:25)
[2018-01-01] MEDS: CEFTRIAXONE PMX 2GM/50ML 50 ML IV SCH (08:25)
[2018-01-01] MEDS: PREGABALIN 200 MG CAPSULE PO SCH (08:25)
[2018-01-01] MEDS: CLOPIDOGREL 75 MG TABLET PO SCH (08:25)
[2018-01-01] MEDS: SODIUM CHLORIDE FLUSH 10ML SYR IVF SCH (08:26)
[2018-01-01] MEDS: ISOSORBIDE MONONITRATE ER 30 MG TABLET PO SCH (08:26)
[2018-01-01] MEDS: CARVEDILOL 3.125 MG TABLET PO SCH (08:26)
[2018-01-01] MEDS ORDERED: CEFD300C37 PO (10:16)
[2018-01-01] MEDS ORDERED: POTA20TA6 PO (10:16)
[2018-01-01] MEDS ORDERED: FURO40TA6 PO (10:16)
[2018-01-01] MEDS ORDERED: MAGN64TA7 PO (10:16)
[2018-01-01] MEDS ORDERED: SPIR25TA3 PO (10:17)
[2018-01-01] MEDS ORDERED: DOXY100T PO (10:17)
== END 2018-01-01 11:24 | disposition home or self-care (01) | DRG 291 ==
LOC: ED 13:47 → EDIP 13:48 → ED 14:01 → 5SO 14:46
PROVIDERS: ADMIT Hospitalist; ATTEND Hospitalist
PROC: 5A09357 Assistance with Respiratory Ventilation, Less than 24 Consecutive Hours, Continuous Positive Airway Pressure (ICD-10-PCS; principal; 2017-12-30)
PROC: 5A09357 Assistance with Respiratory Ventilation, Less than 24 Consecutive Hours, Continuous Positive Airway Pressure (ICD-10-PCS; 2018-01-01)
DX: I13.0 Hypertensive heart and chronic kidney disease with heart failure and stage 1 through stage 4 chronic kidney disease, or unspecified chronic kidney disease (principal); I50.43 Acute on chronic combined systolic (congestive) and diastolic (congestive) heart failure; J18.9 Pneumonia, unspecified organism; N17.0 Acute kidney failure with tubular necrosis; E87.0 Hyperosmolality and hypernatremia; E44.0 Moderate protein-calorie malnutrition; R18.8 Other ascites; E78.5 Hyperlipidemia, unspecified; E11.22 Type 2 diabetes mellitus with diabetic chronic kidney disease; E11.65 Type 2 diabetes mellitus with hyperglycemia; G47.33 Obstructive sleep apnea (adult) (pediatric); I25.10 Atherosclerotic heart disease of native coronary artery without angina pectoris; K21.9 Gastro-esophageal reflux disease without esophagitis; X58.XXXA Exposure to other specified factors, initial encounter; M54.9 Dorsalgia, unspecified; N18.3 Chronic kidney disease, stage 3 (moderate); S80.10XA Contusion of unspecified lower leg, initial encounter; Z79.4 Long term (current) use of insulin; Z82.49 Family history of ischemic heart disease and other diseases of the circulatory system; Z83.3 Family history of diabetes mellitus; Z91.19 Patient's noncompliance with other medical treatment and regimen; Z95.5 Presence of coronary angioplasty implant and graft; Z68.25 Body mass index [BMI] 25.0-25.9, adult; Z79.02 Long term (current) use of antithrombotics/antiplatelets; Z79.82 Long term (current) use of aspirin; Z79.899 Other long term (current) drug therapy; Y93.89 Activity, other specified; Y92.89 Other specified places as the place of occurrence of the external cause
CPT/HCPCS: 36415; 71046; 76700; 78452; 80048; 80053; 82947; 82962; 83735; 83880; 84443; 84484; 85025; 93005; 93017; 93922; 96374; A9585; C8929; J0696; J1644; J1940; J2785; A9502; C9898; J1815

== ENCOUNTER → 2018-03-18 | Outpatient (CLI) | payer MEDICARE ==
[~2018-03-18] MED LIST changes: +CEFD300C37 PO; +DOXY100T PO; +HYDR-3307 PO; +INSU100C SQ-INSULIN; +INSU100I32 SQ-INSULIN; +MAGN64TA7 PO; +SERT50TA5 PO; +SPIR25TA5 PO; +VALS40TA10 PO; -VALS40TA9 PO
== END | disposition home or self-care (01) ==
LOC: CFH 06:51
PROVIDERS: ATTEND Internal Medicine Cardiovascular Disease
DX: I35.1 Nonrheumatic aortic (valve) insufficiency (principal); I35.8 Other nonrheumatic aortic valve disorders; I11.0 Hypertensive heart disease with heart failure; I50.41 Acute combined systolic (congestive) and diastolic (congestive) heart failure; E11.9 Type 2 diabetes mellitus without complications
CPT/HCPCS: 93306

== ENCOUNTER → 2018-07-06 | Outpatient (CLI) | payer MEDICARE, OTHER ==
[~2018-07-06] MED LIST changes: +POLY17PO29 PO; -POLY17PO3 PO
[2018-07-06 16:09] LABS: ANION GAP 4 mmol/L (5-15); CHLORIDE 102 mmol/L (98-107)
[2018-07-06 16:15] LABS: CREATININE 1.88 mg/dL (0.7-1.3)
== END | disposition home or self-care (01) ==
LOC: CFH 12:45
PROVIDERS: ATTEND Nurse Practitioner Family
DX: I35.1 Nonrheumatic aortic (valve) insufficiency (principal); E04.1 Nontoxic single thyroid nodule; E11.65 Type 2 diabetes mellitus with hyperglycemia; E11.69 Type 2 diabetes mellitus with other specified complication; E11.22 Type 2 diabetes mellitus with diabetic chronic kidney disease; I13.0 Hypertensive heart and chronic kidney disease with heart failure and stage 1 through stage 4 chronic kidney disease, or unspecified chronic kidney disease; I50.41 Acute combined systolic (congestive) and diastolic (congestive) heart failure; N18.3 Chronic kidney disease, stage 3 (moderate); M54.5 Low back pain; Z79.4 Long term (current) use of insulin; Z98.61 Coronary angioplasty status
CPT/HCPCS: 36415; 80048; 83880; 93306

== ENCOUNTER → 2020-02-19 | Outpatient (CLI) | payer MEDICARE, OTHER ==
[~2020-02-19] MED LIST changes: -GLIM4TAB2 PO; +GLIM4TAB8 PO; +HYDR-3246 PO; -HYDR-3307 PO; -HYDR1TAB14 PO; +HYDR1TAB15 PO; +Pt. to Bring List; -ROSU20TA PO; +ROSU20TA2 PO; +SERT50TA28 PO; -SERT50TA5 PO
[2020-02-19 09:29] LABS: INTERNATIONAL NORMALIZED RATIO 1.09 (0.93-1.1); PROTHROMBIN TIME 11.2 Seconds (9.6-11.5)
[2020-02-19 09:30] LABS: ALANINE AMINOTRANSFERASE 30 U/L (12-78); ALBUMIN 3.9 g/dL (3.4-5.0); ANION GAP 5 mmol/L (5-15); CALCIUM 9.1 mg/dL (8.5-10.1); CHLORIDE 105 mmol/L (98-107); CREATININE 1.83 mg/dL (0.7-1.3)
[2020-02-19 09:32] LABS: ALKALINE PHOSPHATASE 144 U/L (45-117); BILIRUBIN,TOTAL 0.8 mg/dL (0.2-1.0)
[2020-02-19 09:50] LABS: BASOPHILS # (AUTO) 0.02 x10^3/uL (0-0.1); BASOPHILS % (AUTO) 1 % (0-1); EOSINOPHILS # (AUTO) 0.28 x10^3/uL (0-0.4); EOSINOPHILS % (AUTO) 10 % (1-7); LYMPHOCYTES # (AUTO) 0.84 x10^3/uL (1-3.4); LYMPHOCYTES % (AUTO) 30 % (22-44); MD MORPH REVIEW ONLY; MEAN CORPUSCULAR HEMOGLOBIN 26.8 pg (27.5-34.5); MEAN CORPUSCULAR HGB CONC 31.9 g/dL (33.2-36.2); MEAN PLATELET VOLUME 9.5 fL (7.4-10.4); MONOCYTES # (AUTO) 0.28 x10^3/uL (0.2-0.8); MONOCYTES % (AUTO) 10 % (2-9); NEUTROPHILS # (AUTO) 1.44 x10^3/uL (1.8-6.8); NEUTROPHILS % (AUTO) 50 % (42-75); PLATELET COUNT 63 x10^3/uL (130-400); RED BLOOD COUNT 4.56 x10^6/uL (4.38-5.82); RED CELL DISTRIBUTION WIDTH 20.3 % (9.4-14.8)
[2020-02-19 09:51] LABS: ANISOCYTOSIS 1+
[2020-02-19 09:52] LABS: <PLATELET ESTIMATE> DECREASED; ACANTHOCYTES 1+; ECHINOCYTES 1+; LARGE PLATELETS 1+; OVALOCYTES 1+
[2020-02-19 09:53] LABS: TEAR DROPS 1+
[2020-02-19 09:54] LABS: HYPOCHROMIA 1+
== END | disposition home or self-care (01) ==
LOC: STAR 08:07
PROVIDERS: ATTEND Neurological Surgery
DX: Z01.818 Encounter for other preprocedural examination (principal); M80.88XA Other osteoporosis with current pathological fracture, vertebra(e), initial encounter for fracture; R94.31 Abnormal electrocardiogram [ECG] [EKG]; R00.1 Bradycardia, unspecified; I25.2 Old myocardial infarction
CPT/HCPCS: 36415; 80053; 85025; 85610; 85730; 93005